=== PATIENT | female | born 2000 | race Caucasian/White ===

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

== ENCOUNTER 2018-05-25 18:31 | Emergency (ER) | payer BC, OTHER ==
[2018-05-25 19:48] VITALS: BP 117/59; PULSE 66; RESP 18; TEMP 98.9
[2018-05-25] MEDS ORDERED: IBUPROFEN 600 MG TAB PO STA (20:07)
--- NOTE | 2018-05-25 20:07 | ED ---
ENT HPI - General Chief complaint: Dental/Oral Stated complaint: dental pain Time Seen by Provider: 05/25/18 19:49 Source: patient Mode of arrival: ambulatory Limitations: no limitations - History of Present Illness Initial comments: 18-year-old female patient presents emergency department today for complaints of lower jaw pain that radiates into her bilateral ears. Patient states this has been going on for the last several months but has worsened over the last 2 days. Patient states that she did have her wisdom teeth removed in October and that she's been having problems since. Patient denies any facial swelling, fever, chills, swelling of the gums, difficulty swallowing, or trismus. She denies any nasal congestion, drainage, recent cough, or recent congestion. Patient denies any recent rash, shortness breath, chest pain, abdominal pain, nausea, vomiting, diarrhea, constipation, back pain, numbness, tingling, dizziness, weakness, hematuria, dysuria, urinary urgency, urinary frequency, headache, visual changes, or any other complaints. - Related Data Home Medications Medication Instructions Recorded Confirmed Ferrous Sulfate [Feosol] 325 mg PO DAILY 12/08/16 12/08/16 Pnv,Calcium 72/Iron/Folic Acid 1 each PO DAILY 12/08/16 12/08/16 [ Plus Tablet] Previous Rx's Medication Instructions Recorded Ibuprofen [Motrin] 600 mg PO Q8HR PRN #30 tab 05/25/18 Allergies Allergy/AdvReac Type Severity Reaction Status Date / Time amoxicillin Allergy Rash/Hives Verified 05/25/18 19:44 cephalexin monohydrate Allergy Rash/Hives Verified 05/25/18 19:44 [From Always Prepped] Review of Systems ROS Statement: Those systems with pertinent positive or pertinent negative responses have been documented in the HPI. ROS Other: All systems not noted in ROS Statement are negative. Past Medical History Past Medical History: No Reported History History of Any Multi-Drug Resistant Organisms: None Reported Past Surgical History: No Surgical Hx Reported Additional Past Surgical History / Comment(s): wisdom teeth extraction Past Psychological History: ADD/ADHD, Bipolar, Depression Smoking Status: Current some day smoker Past Alcohol Use History: Occasional Past Drug Use History: Marijuana - Past Family History Father Family Medical History: Hypertension Mother Additional Family Medical History / Comment(s): rheumatoid arthritis Brother(s) Additional Family Medical History / Comment(s): epilepsy and cp General Exam Limitations: no limitations General appearance: alert, in no apparent distress, other (This is a well- developed, well-nourished adult female patient in no acute distress. Vital signs upon presentation are temperature 98.9F, pulse 66, respirations 18, blood pressure 117/59, pulse ox 100% on room air.) Eye exam: Present: normal appearance, PERRL, EOMI. Absent: scleral icterus, conjunctival injection, periorbital swelling ENT exam: Present: normal exam, normal oropharynx, mucous membranes moist. Absent: TM's normal bilaterally (Bilateral cerumen impaction) Respiratory exam: Present: normal lung sounds bilaterally. Absent: respiratory distress, wheezes, rales, rhonchi, stridor Cardiovascular Exam: Present: regular rate, normal rhythm, normal heart sounds. Absent: systolic murmur, diastolic murmur, rubs, gallop, clicks GI/Abdominal exam: Present: soft, normal bowel sounds. Absent: distended, tenderness, guarding, rebound, rigid Neurological exam: Present: alert, oriented X3, CN II-XII intact Psychiatric exam: Present: normal affect, normal mood Skin exam: Present: warm, dry, intact, normal color. Absent: rash Course Vital Signs 05/25/18 19:45 Temperature 98.9 F Pulse Rate 66 Respiratory 18 Rate Blood Pressure 117/59 O2 Sat by Pulse 100 Oximetry Medical Decision Making - Medical Decision Making 18-year-old female patient presented to the emergency department today for complaints of bilateral ear pain and lower jaw pain. Physical examination did reveal bilateral cerumen impaction. Evaluation of the dentition was unremarkable, no obviously broken teeth or dental caries. No gingival erythema or hyperplasia, no evidence of abscess. Patient is afebrile. We did discuss possibility of temporomandibular joint disorder as well as the cerumen impaction causing her discomfort. Nursing staff did irrigate the ears and clear both impactions. Bilateral tympanic membranes are within normal range. No evidence of infection. Did discuss findings and results with the patient. She is instructed to follow-up with her primary care physician for recheck. We did also provide follow-up with oral surgery to discuss TMJ possibility. Did recommend obtaining a mouth guard for sleeping. She is given a prescription for ibuprofen. Return parameters were discussed in detail. She verbalizes understanding and agrees with this plan. Disposition Clinical Impression: Jaw pain, Bilateral impacted cerumen Disposition: HOME SELF-CARE Condition: Good Instructions: Cerumen Impaction (ED), Temporomandibular Disorder (ED) Additional Instructions: Take medications as directed. Consider getting a mouth guard to use while sleeping. Follow-up with your dentist and or the oral surgeon for recheck as soon as possible. Return here immediately for any new, worsening, or concerning symptoms. Prescriptions: Ibuprofen [Motrin] 600 mg PO Q8HR PRN #30 tab PRN Reason: Pain Is patient prescribed a controlled substance at d/c from ED?: No Referrals: Imer Krishnamurthy MD [Primary Care Provider] - 1-2 days Iain Cosby DDS [STAFF PHYSICIAN] - 1-2 days Time of Disposition: 20:08
[2018-05-25] MEDS ORDERED: CARBAMIDE PEROXIDE 6.5% DROPS 15 ML BTL BOTH EARS STA (20:15)
== END 2018-05-25 22:02 | disposition home or self-care (01) ==
LOC: EC 18:31
DX: R68.84 Jaw pain (principal); H61.23 Impacted cerumen, bilateral; F17.200 Nicotine dependence, unspecified, uncomplicated; Z79.899 Other long term (current) drug therapy; Z88.0 Allergy status to penicillin; Z88.1 Allergy status to other antibiotic agents
CPT/HCPCS: 99282